=== PATIENT | male | born 1950 | race Caucasian/White ===

== ENCOUNTER → 2017-02-20 | Outpatient (CLI) | payer OTHER, MEDICARE ==
--- NOTE | 2017-02-21 08:09 | XR ---
EXAMINATION TYPE: XR cervical spine comp DATE OF EXAM: 02/20/2017 9:32 AM CLINICAL HISTORY: pain COMPARISON: NONE TECHNIQUE: Frontal, lateral, oblique, swimmers, and open mouth view of the cervical spine are obtaine d. FINDINGS: The cervical spine is visualized in its entirety from C1 thru the top of T1 level. It is s atisfactory in alignment without evidence of acute fracture or dislocation. The pre-vertebral soft t issue appears within normal limits. Disc spaces are well preserved. The C1-C2 articulation is unremar kable on the open mouth view. The oblique images are within normal limits. IMPRESSION: No acute fracture or dislocation is seen in the cervical spine. ICD 10 NO FRACTURE, INITIAL EVALUATION
== END | disposition home or self-care (01) ==
LOC: RADXRYALE 09:15
PROVIDERS: ATTEND Family Medicine
DX: M54.2 Cervicalgia (principal); M62.838 Other muscle spasm
CPT/HCPCS: 72050

== ENCOUNTER → 2018-08-03 | Outpatient (CLI) | payer OTHER, MEDICARE ==
--- NOTE | 2018-08-03 18:09 | CT ---
EXAMINATION TYPE: CT brain wo con DATE OF EXAM: 08/03/2018 COMPARISON: None HISTORY: dizziness and syncope CT DLP: 1114 mGycm Automated exposure control for dose reduction was used. FINDINGS: There is some cerebral cortical atrophy. There is no mass effect nor midline shift. There is no sign of intracranial hemorrhage. The calvarium is intact. IMPRESSION: MILD ATROPHY. OTHERWISE NEGATIVE CT SCAN OF THE BRAIN.
== END | disposition home or self-care (01) ==
LOC: RADCTMAIN 17:30
PROVIDERS: ATTEND Family Medicine
DX: G31.9 Degenerative disease of nervous system, unspecified (principal)
CPT/HCPCS: 70450

== ENCOUNTER 2018-10-28 16:31 | Emergency (ER) | payer OTHER, MEDICARE ==
[2018-10-28] MEDS ORDERED: SODIUM CHLORIDE 0.9% 1,000 ML IV STA (16:41)
[2018-10-28 16:46] VITALS: TEMP 98.8
--- NOTE | 2018-10-28 16:48 | ED ---
SOB HPI - General Stated Complaint: SOB Time Seen by Provider: 10/28/18 16:31 Source: patient, EMS, RN notes reviewed Mode of arrival: EMS Limitations: no limitations - History of Present Illness Initial Comments: Is a 68-year-old male with a history of a recent prostate biopsy who states he' s had shortness of breath and sharp right-sided posterior chest pain today. He states is a has been severe but he believes is feeling better he denies any fevers or sweats he has had some chills no cough or phlegm production he is a nonsmoker. No history of COPD asthma or emphysema. No trauma is reported. No overt abdominal pain. He states he does not know if he is having hematuria as he did see that far down. No focal weakness was upper or lower extremities no prior histories of pulmonary embolism or DVT. No other modifying factors at this time MD Complaint: shortness of breath, chest pain - Related Data Home Medications Medication Instructions Recorded Confirmed Aspirin [[place] Aspirin EC] 81 mg PO DAILY 10/28/18 10/28/18 Famotidine [Pepcid] 20 mg PO BID 10/28/18 10/28/18 Ibuprofen [Advil] 400 mg PO Q8HR 10/28/18 10/28/18 Timolol 0.5% Ophth Soln [Timoptic 1 drop BOTH EYES BID 10/28/18 10/28/18 0.5% Ophth Soln] Previous Rx's Medication Instructions Recorded Ibuprofen 800 mg PO Q6HR PRN #20 tablet 10/28/18 Allergies Allergy/AdvReac Type Severity Reaction Status Date / Time Penicillins Allergy Nausea & Verified 10/28/18 17:17 Vomiting Review of Systems ROS Statement: Those systems with pertinent positive or pertinent negative responses have been documented in the HPI. ROS Other: All systems not noted in ROS Statement are negative. Past Medical History Past Medical History: Cancer History of Any Multi-Drug Resistant Organisms: None Reported Additional Past Surgical History / Comment(s): Prostate Biopsy Past Psychological History: No Psychological Hx Reported Smoking Status: Never smoker Past Alcohol Use History: None Reported Past Drug Use History: None Reported General Exam - General Exam Comments Initial Comments: This is a well-developed well-nourished awake alert oriented times 3 male Limitations: no limitations General appearance: alert, anxious Head exam: Present: atraumatic, normocephalic, normal inspection Eye exam: Present: normal appearance, PERRL, EOMI. Absent: scleral icterus, conjunctival injection, periorbital swelling ENT exam: Present: normal exam, mucous membranes moist Neck exam: Present: normal inspection. Absent: tenderness, meningismus, lymphadenopathy Respiratory exam: Present: decreased breath sounds. Absent: respiratory distress, wheezes, rales, rhonchi, stridor, chest wall tenderness Cardiovascular Exam: Present: regular rate, normal rhythm, normal heart sounds. Absent: systolic murmur, diastolic murmur, rubs, gallop, clicks GI/Abdominal exam: Present: soft, normal bowel sounds. Absent: distended, tenderness, guarding, rebound, rigid Extremities exam: Present: normal inspection, full ROM, normal capillary refill. Absent: tenderness, pedal edema, joint swelling, calf tenderness Back exam: Present: normal inspection Neurological exam: Present: alert, oriented X3, CN II-XII intact Psychiatric exam: Present: normal affect, normal mood Skin exam: Present: warm, dry, intact, normal color. Absent: rash Course Vital Signs 10/28/18 16:42 Temperature 98.8 F Pulse Rate 92 Respiratory 18 Rate Blood Pressure 168/96 O2 Sat by Pulse 99 Oximetry - Reevaluation(s) Reevaluation #1: 10/28/18 18:08 Today's EKG was compared with one from 200802/03/09 which at that time showed sinus rhythm left atrial enlargement nonspecific inferior changes this appears be consistent with today's EKG. Medical Decision Making - Medical Decision Making Patient showing much improved at this time I did a long discussion with him regarding the findings. I did offer him admission he is declining at this time. He will instead follow up with his doctor tomorrow morning. I did encourage him to come back if any problems. The presentation currently is likely secondary to pleuritic type chest pain and advised anti-inflammatories. History and 10 days since his biopsy that should be adequate postop timing. Is also to keep his follow-up with Dr. Sue - Lab Data Result diagrams: 10/28/18 16:53 10/28/18 16:53 Lab Results 10/28/18 10/28/18 10/28/18 Range/Units 16:53 16:53 16:53 WBC 10.9 H (3.8-10.6) k/uL RBC 5.86 (4.30-5.90) m/uL Hgb 15.7 (13.0-17.5) gm/dL Hct 50.1 (39.0-53.0) % MCV 85.5 (80.0-100.0) fL MCH 26.8 (25.0-35.0) pg MCHC 31.4 (31.0-37.0) g/dL RDW 13.2 (11.5-15.5) % Plt Count 289 (150-450) k/uL Neutrophils % 77 % Lymphocytes % 13 % Monocytes % 7 % Eosinophils % 2 % Basophils % 0 % Neutrophils # 8.3 H (1.3-7.7) k/uL Lymphocytes # 1.4 (1.0-4.8) k/uL Monocytes # 0.8 (0-1.0) k/uL Eosinophils # 0.2 (0-0.7) k/uL Basophils # 0.0 (0-0.2) k/uL PT (9.0-12.0) sec INR (<1.2) APTT (22.0-30.0) sec D-Dimer (<0.60) mg/L FEU Sodium 141 (137-145) mmol/L Potassium 4.1 (3.5-5.1) mmol/L Chloride 106 (98-107) mmol/L Carbon Dioxide 24 (22-30) mmol/L Anion Gap 11 mmol/L BUN 22 H (9-20) mg/dL Creatinine 0.87 (0.66-1.25) mg/dL Est GFR (CKD-EPI)AfAm >90 (>60 ml/min/1.73 sqM) Est GFR (CKD-EPI)NonAf 88 (>60 ml/min/1.73 sqM) Glucose 112 H (74-99) mg/dL Calcium 9.4 (8.4-10.2) mg/dL Magnesium 2.1 (1.6-2.3) mg/dL Total Bilirubin 0.5 (0.2-1.3) mg/dL AST 21 (17-59) U/L ALT 26 (21-72) U/L Alkaline Phosphatase 96 (38-126) U/L Total Creatine Kinase 47 L (55-170) U/L CK-MB (CK-2) 1.0 (0.0-2.4) ng/mL CK-MB (CK-2) Rel Index 2.1 Troponin I <0.012 (0.000-0.034) ng/mL NT-Pro-B Natriuret Pep pg/mL Total Protein 7.7 (6.3-8.2) g/dL Albumin 4.1 (3.5-5.0) g/dL 10/28/18 10/28/18 Range/Units 16:53 16:53 WBC (3.8-10.6) k/uL RBC (4.30-5.90) m/uL Hgb (13.0-17.5) gm/dL Hct (39.0-53.0) % MCV (80.0-100.0) fL MCH (25.0-35.0) pg MCHC (31.0-37.0) g/dL RDW (11.5-15.5) % Plt Count (150-450) k/uL Neutrophils % % Lymphocytes % % Monocytes % % Eosinophils % % Basophils % % Neutrophils # (1.3-7.7) k/uL Lymphocytes # (1.0-4.8) k/uL Monocytes # (0-1.0) k/uL Eosinophils # (0-0.7) k/uL Basophils # (0-0.2) k/uL PT 10.2 (9.0-12.0) sec INR 0.9 (<1.2) APTT 26.5 (22.0-30.0) sec D-Dimer 0.73 H (<0.60) mg/L FEU Sodium (137-145) mmol/L Potassium (3.5-5.1) mmol/L Chloride (98-107) mmol/L Carbon Dioxide (22-30) mmol/L Anion Gap mmol/L BUN (9-20) mg/dL Creatinine (0.66-1.25) mg/dL Est GFR (CKD-EPI)AfAm (>60 ml/min/1.73 sqM) Est GFR (CKD-EPI)NonAf (>60 ml/min/1.73 sqM) Glucose (74-99) mg/dL Calcium (8.4-10.2) mg/dL Magnesium (1.6-2.3) mg/dL Total Bilirubin (0.2-1.3) mg/dL AST (17-59) U/L ALT (21-72) U/L Alkaline Phosphatase (38-126) U/L Total Creatine Kinase (55-170) U/L CK-MB (CK-2) (0.0-2.4) ng/mL CK-MB (CK-2) Rel Index Troponin I (0.000-0.034) ng/mL NT-Pro-B Natriuret Pep 31 pg/mL Total Protein (6.3-8.2) g/dL Albumin (3.5-5.0) g/dL - EKG Data -: EKG Interpreted by Me EKG shows normal: sinus rhythm (Sinus rhythm rate 92. Interval 160 QRS duration 94 QT since QTC 336/413 nonspecific inferior changes noted. No acute ST elevation or depression seen) - Radiology Data Radiology results: report reviewed (Did review the imaging and reports are is no evidence of acute abdominal findings also scars the lungs no PE no evidence of pneumonic process or some evidence of atelectasis seen a CAT scan no overt infiltrates. There was a small nodule 1.4 x 0.9 cm seen in the right paraesophageal reason he is aware of this.), image reviewed Disposition Clinical Impression: Pleuritic chest pain, Bronchospasm, History of prostate biopsy, Pulmonary nodule Disposition: HOME SELF-CARE Condition: Good Instructions: Bronchospasm (ED), Pleurisy (ED) Prescriptions: Ibuprofen 800 mg PO Q6HR PRN #20 tablet PRN Reason: Pain Is patient prescribed a controlled substance at d/c from ED?: No Referrals: [facility] [Primary Care Provider] - 1-2 days
[2018-10-28 17:15] LABS: Basophils % (A) 0 %; Eosinophils # (A) 0.2 k/uL (0-0.7); Eosinophils % (A) 2 %; HCT 50.1 % (39.0-53.0); HGB 15.7 gm/dL (13.0-17.5); Lymphocytes # (A) 1.4 k/uL (1.0-4.8); Lymphocytes % (A) 13 %; MCH 26.8 pg (25.0-35.0); MCHC 31.4 g/dL (31.0-37.0); MCV 85.5 fL (80.0-100.0); Mean Platelet Volume 6.7; Monocytes # (A) 0.8 k/uL (0-1.0); Monocytes % (A) 7 %; Neutrophils # (A) 8.3 k/uL (1.3-7.7); Neutrophils % (A) 77 %; Platelet Count 289 k/uL (150-450); RBC 5.86 m/uL (4.30-5.90); RDW 13.2 % (11.5-15.5); WBC 10.9 k/uL (3.8-10.6)
[2018-10-28 17:18] LABS: ALT 26 U/L (21-72); AST 21 U/L (17-59); Albumin 4.1 g/dL (3.5-5.0); Alkaline Phosphatase 96 U/L (38-126); Anion Gap 11 mmol/L; Blood Urea Nitrogen 22 mg/dL (9-20); Calcium 9.4 mg/dL (8.4-10.2); Carbon Dioxide 24 mmol/L (22-30); Chloride 106 mmol/L (98-107); Glucose 112 mg/dL (74-99); Magnesium 2.1 mg/dL (1.6-2.3); Potassium 4.1 mmol/L (3.5-5.1); Sodium 141 mmol/L (137-145); Total Bilirubin 0.5 mg/dL (0.2-1.3); Total Protein 7.7 g/dL (6.3-8.2)
[2018-10-28 17:23] LABS: INR 0.9 (<1.2); Partial Thromboplastin Time 26.5 sec (22.0-30.0); Prothrombin Time 10.2 sec (9.0-12.0)
[2018-10-28 17:34] LABS: D-Dimer 0.73 mg/L FEU (<0.60)
[2018-10-28 17:36] LABS: Creatine Kinase 47 U/L (55-170)
--- NOTE | 2018-10-28 17:37 | XR ---
EXAMINATION TYPE: XR chest 2V DATE OF EXAM: 10/28/2018 COMPARISON: NONE HISTORY: Right-sided chest pain and shortness of breath today. TECHNIQUE: Frontal and lateral views of the chest are obtained. FINDINGS: Cardiac silhouette size is enlarged. There are small to tiny bilateral pleural effusions f elt present. There is associated bibasilar atelectasis and/or infiltrate. The osseous structures are intact. IMPRESSION: Cardiomegaly with small to tiny bilateral pleural effusions and bibasilar acute infiltra te and/or atelectasis noted.
[2018-10-28 17:49] LABS: Troponin I <0.012 ng/mL (0.000-0.034)
--- NOTE | 2018-10-28 19:27 | CT ---
EXAMINATION TYPE: CT abdomen pelvis wo con DATE OF EXAM: 10/28/2018 HISTORY: SOB, pain in LT side back. Left-sided flank and back pain CT DLP: 695.6 mGycm. Automated Exposure Control for Dose Reduction was Utilized. TECHNIQUE: CT scan of the abdomen and pelvis is performed without oral or IV contrast. COMPARISON: NONE FINDINGS: Within the limitations of a non-contrast study, the following observations are made. LUNG BASES: Please refer to same day CTA chest report complete details on lung bases. LIVER/GB: Dependent calcified gallstone is seen in gallbladder axial image 59. No surrounding inflamm atory changes noted. Liver is diffusely low dense relative to spleen consistent with fatty infiltrati on. PANCREAS: No significant abnormality is seen. SPLEEN: No significant abnormality is seen. ADRENALS: No significant abnormality is seen. KIDNEYS: No renal calculi or hydronephrosis is seen bilaterally. Simple appearing cyst measuring arou nd 4 cm in diameter upper the lower pole of the right kidney are seen. No intraluminal calculi and bl adder are noted. BOWEL: Evaluation of bowel is slightly suboptimal film due to lack of enteric contrast. No suspicious small or large bowel dilatation is seen.. GENITAL ORGANS: Prostate gland is enlarged in size bulging on bladder base, underlying BPH is felt pr esent LYMPH NODES: No greater than 1cm abdominal or pelvic lymph nodes are appreciated. OSSEOUS STRUCTURES: Multilevel spurring in the thoracolumbar spine is present. Moderate disc space na rrowing with vacuum disc phenomenon L4-L5 level is seen. OTHER: Mild calcified plaque of the aorta extends into branch vessels. IMPRESSION: No renal stones or hydronephrosis is seen bilaterally. No suspicious acute finding is see n on noncontrast CT to account for patient's symptoms.
--- NOTE | 2018-10-28 19:36 | CT ---
EXAMINATION TYPE: CT angio chest DATE OF EXAM: 10/28/2018 COMPARISON: NONE HISTORY: SOB, pain in LT side back. CT DLP: 445.8 mGycm. Automated Exposure Control for Dose Reduction was Utilized. CONTRAST: CTA scan of the thorax is performed with IV Contrast, patient injected with 100 mL of Isovue 370, pul monary embolism protocol. MIP Images are created on CT scanner and reviewed. FINDINGS: LUNGS: Some dependent atelectasis right lung base is present. There is additional patchy bibasilar li near scarring and/or atelectasis in the bases near diaphragm. No pleural effusion or pneumothorax is seen bilaterally. No suspicious nodules or masses are identified. Tracheobronchial tree is patent. MEDIASTINUM: There is satisfactory enhancement of the pulmonary artery and its branches, there is no CT evidence for pulmonary embolism. There are no greater than 1 cm hilar or mediastinal lymph nodes. There is prominent right paraesophageal hyperdense axial image 18 mass or lymph node measuring 1.4 x 0.9 cm. There are prominent but subcentimeter lymph nodes bilateral hilar region, subcarinal region , and AP window noted. No cardiomegaly or pericardial effusion is seen. Small hiatal hernia is presen t. OTHER: Please refer to same day CT abdomen and pelvis report for complete details in the upper abdome n. IMPRESSION: 1. No CT evidence for acute pulmonary embolism. 2. No suspicious acute pulmonary process. 3. Abnormal superior mediastinal hyperdense 1.4 x 0.9 cm mass right paraesophageal region that may wa rrant follow-up. Ectopic thyroid and hyperdense adenopathy is in differential. Other etiologies not e xcluded.
[2018-10-28 20:24] VITALS: BP 150/82; PULSE 85; RESP 23
== END 2018-10-28 20:24 | disposition home or self-care (01) ==
LOC: EC 16:31
DX: J98.01 Acute bronchospasm (principal); R91.1 Solitary pulmonary nodule; Z98.890 Other specified postprocedural states; Z85.9 Personal history of malignant neoplasm, unspecified; Z79.82 Long term (current) use of aspirin; Z79.1 Long term (current) use of non-steroidal anti-inflammatories (NSAID); Z79.899 Other long term (current) drug therapy; Z88.0 Allergy status to penicillin; Z53.29 Procedure and treatment not carried out because of patient's decision for other reasons
CPT/HCPCS: 36415; 93005; 85379; 83880; 80053; 82550; 82553; 83735; 84484; 85025; 85610; 85730; 71046; 71275; 74176; 99285; 96360; 96361; Q9967

== ENCOUNTER → 2022-01-13 | Outpatient (CLI) | payer OTHER, MEDICARE ==
--- NOTE | 2022-01-13 14:45 | XR ---
EXAMINATION TYPE: XR chest 2V DATE OF EXAM: 01/13/2022 COMPARISON: X-ray dated 10/28/2018 HISTORY: SOB with cough for several weeks TECHNIQUE: Frontal and lateral views of the chest are obtained. FINDINGS: Left basal pulmonary atelectasis versus prominent epicardial fat-pad. Grossly unremarkable lungs othe rwise. No sizable pleural effusion or definite pneumothorax. No cardiomegaly. Degenerative changes of the thoracic spine. IMPRESSION: No significant pulmonary abnormality identified.
== END | disposition home or self-care (01) ==
LOC: RADXRYALE 11:22
PROVIDERS: ATTEND Physician Assistant
DX: R06.02 Shortness of breath (principal); R05.9 Cough, unspecified
CPT/HCPCS: 71046

== ENCOUNTER 2022-01-25 10:58 | Emergency (ER) | payer OTHER, MEDICARE ==
[2022-01-25 11:18] VITALS: RESP 18
[2022-01-25] MEDS ORDERED: ASPIRIN 81 MG PO STA (11:51)
[2022-01-25 12:00] LABS: Basophils # (A) 0.1 k/uL (0-0.2); Basophils % (A) 1 %; Eosinophils # (A) 0.2 k/uL (0-0.7); Eosinophils % (A) 1 %; HCT 49.8 % (39.0-53.0); HGB 16.7 gm/dL (13.0-17.5); Lymphocytes # (A) 1.7 k/uL (1.0-4.8); Lymphocytes % (A) 15 %; MCH 29.2 pg (25.0-35.0); MCHC 33.6 g/dL (31.0-37.0); MCV 86.9 fL (80.0-100.0); Mean Platelet Volume 7.7; Monocytes # (A) 0.7 k/uL (0-1.0); Monocytes % (A) 7 %; Neutrophils # (A) 8.4 k/uL (1.3-7.7); Neutrophils % (A) 75 %; Platelet Count 280 k/uL (150-450); RBC 5.73 m/uL (4.30-5.90); RDW 13.1 % (11.5-15.5); WBC 11.2 k/uL (3.8-10.6)
--- NOTE | 2022-01-25 12:22 | ED ---
General Adult HPI - General Chief complaint: Recheck/Abnormal Lab/Rx Stated complaint: sent for labs Time Seen by Provider: 01/25/22 11:22 Source: patient, RN notes reviewed, old records reviewed Mode of arrival: ambulatory Limitations: no limitations - History of Present Illness Initial comments: Patient is a 71-year-old male with past medical history remarkable for suspected recent subacute SD over the last 2 weeks he was sent here from Dr. Em's office for cardiac labs. I did speak with Dr. Em over the phone, the patient has been having on again off again chest pain at home, which is most resolved the last few days after experiencing chest pain over the left side for about a week and a half prior to seeing his PCP. EKG showed a possible old inferior wall SD, an echo done at the [facility] today revealed decreased right ventricular motion. Dr. Em requested cardiac labs as well as a d-dimer. He states his labs look good, patient can go home, however there is some abnormality or patient is symptomatic we can admit for evaluation and telemetry monitoring. Patient currently states he has no acute complaints. Denies any shortness of breath, chest pain, abdominal pain, nausea, vomiting. States that after a few days ago when his chest pain resolved, he just intermittently will receive very brief left-sided discomfort. Has not had it recently. Does endorse exertional dyspnea. Denies any lower extremity edema. No history of blood clots. No other cardiac history. Patient does have a history of hypertension, however up until recently was not overly compliant with his medications. He is a never smoker and does not drink. No other acute complaints at this time. No fevers, chills, sick contacts. - Related Data Home Medications Medication Instructions Recorded Confirmed Timolol 0.5% Ophth Soln [Timoptic 1 drop BOTH EYES BID 10/28/18 01/25/22 0.5% Ophth Soln] Latanoprost Ophth [Xalatan 0.005%] 1 drops RIGHT EYE HS 01/25/22 01/25/22 Losartan [Cozaar] 50 mg PO DAILY 01/25/22 01/25/22 Allergies Allergy/AdvReac Type Severity Reaction Status Date / Time Penicillins Allergy Unknown Verified 01/25/22 12:28 Childhood Review of Systems ROS Statement: Those systems with pertinent positive or pertinent negative responses have been documented in the HPI. Review of Systems: CONST: Denies fever EYES: Denies blurry vision ENT: Denies nasal congestion C/V: Denies chest pain RESP: Denies shortness of breath GI: Denies abdominal pain : Denies dysuria SKIN: Denies rash. MSK: Denies joint pain. NEURO: Denies headache ROS Other: All systems not noted in ROS Statement are negative. Past Medical History Past Medical History: Cancer, Myocardial Infarction (SD) History of Any Multi-Drug Resistant Organisms: None Reported Additional Past Surgical History / Comment(s): Prostate Biopsy Past Psychological History: No Psychological Hx Reported Smoking Status: Never smoker Past Alcohol Use History: None Reported Past Drug Use History: None Reported General Exam - General Exam Comments Initial Comments: General: Appears in no acute distress. HEAD: Normal with no signs of head trauma. EYES: PERRLA, EOMI, conjunctiva normal, no discharge. ENT: Hearing grossly intact, normal oropharynx. RESPIRATORY: Clear breath sounds bilaterally. No wheezes, rales, or rhonchi. C/V: Regular rate and rhythm. S1 and S2 auscultated, no edema, peripheral pulses 2+ and intact throughout ABD: Abd is soft, nontender, nondistended EXT: Normal range of motion, no obvious deformity SKIN: No rashes or lesions observed on exposed skin. NEURO: Alert and oriented x 4. Cranial nerves II-XII intact. No focal sensory or strength deficits. Limitations: no limitations Course Vital Signs 01/25/22 11:15 Temperature 97.9 F Pulse Rate 65 Respiratory 18 Rate Blood Pressure 148/77 O2 Sat by Pulse 97 Oximetry Medical Decision Making - Medical Decision Making Based on the patient's presentation and physical exam, we will obtain a cardiac workup plus d-dimer. Patient was in agreement this plan. He will be given an aspirin. Also obtain a chest x-ray. He is currently asymptomatic at this time. Patient was in agreement this plan. EKG showed no signs of acute ischemia, however there were Q waves in the inferior leads distribution suggestive of possible old SD. - Lab Data Result diagrams: 01/25/22 11:37 01/25/22 12:55 Lab Results 01/25/22 01/25/22 01/25/22 Range/Units 11:37 11:37 12:55 WBC 11.2 H (3.8-10.6) k/uL RBC 5.73 (4.30-5.90) m/uL Hgb 16.7 (13.0-17.5) gm/dL Hct 49.8 (39.0-53.0) % MCV 86.9 (80.0-100.0) fL MCH 29.2 (25.0-35.0) pg MCHC 33.6 (31.0-37.0) g/dL RDW 13.1 (11.5-15.5) % Plt Count 280 (150-450) k/uL MPV 7.7 Neutrophils % 75 % Lymphocytes % 15 % Monocytes % 7 % Eosinophils % 1 % Basophils % 1 % Neutrophils # 8.4 H (1.3-7.7) k/uL Lymphocytes # 1.7 (1.0-4.8) k/uL Monocytes # 0.7 (0-1.0) k/uL Eosinophils # 0.2 (0-0.7) k/uL Basophils # 0.1 (0-0.2) k/uL PT 10.8 (9.0-12.0) sec INR 1.0 (<1.2) APTT 24.9 (22.0-30.0) sec D-Dimer 0.59 (<0.60) mg/L FEU Sodium (137-145) mmol/L Potassium (3.5-5.1) mmol/L Chloride (98-107) mmol/L Carbon Dioxide (22-30) mmol/L Anion Gap mmol/L BUN (9-20) mg/dL Creatinine (0.66-1.25) mg/dL Est GFR (CKD-EPI)AfAm (>60 ml/min/1.73 sqM) Est GFR (CKD-EPI)NonAf (>60 ml/min/1.73 sqM) Glucose (74-99) mg/dL Calcium (8.4-10.2) mg/dL Magnesium (1.6-2.3) mg/dL Total Bilirubin (0.2-1.3) mg/dL AST (17-59) U/L ALT (4-49) U/L Alkaline Phosphatase (38-126) U/L Troponin I (0.000-0.034) ng/mL NT-Pro-B Natriuret Pep 25 pg/mL Total Protein (6.3-8.2) g/dL Albumin (3.5-5.0) g/dL 01/25/22 01/25/22 Range/Units 12:55 12:55 WBC (3.8-10.6) k/uL RBC (4.30-5.90) m/uL Hgb (13.0-17.5) gm/dL Hct (39.0-53.0) % MCV (80.0-100.0) fL MCH (25.0-35.0) pg MCHC (31.0-37.0) g/dL RDW (11.5-15.5) % Plt Count (150-450) k/uL MPV Neutrophils % % Lymphocytes % % Monocytes % % Eosinophils % % Basophils % % Neutrophils # (1.3-7.7) k/uL Lymphocytes # (1.0-4.8) k/uL Monocytes # (0-1.0) k/uL Eosinophils # (0-0.7) k/uL Basophils # (0-0.2) k/uL PT (9.0-12.0) sec INR (<1.2) APTT (22.0-30.0) sec D-Dimer (<0.60) mg/L FEU Sodium 140 (137-145) mmol/L Potassium 4.3 (3.5-5.1) mmol/L Chloride 108 H (98-107) mmol/L Carbon Dioxide 23 (22-30) mmol/L Anion Gap 9 mmol/L BUN 21 H (9-20) mg/dL Creatinine 0.68 (0.66-1.25) mg/dL Est GFR (CKD-EPI)AfAm >90 (>60 ml/min/1.73 sqM) Est GFR (CKD-EPI)NonAf >90 (>60 ml/min/1.73 sqM) Glucose 103 H (74-99) mg/dL Calcium 9.2 (8.4-10.2) mg/dL Magnesium 2.0 (1.6-2.3) mg/dL Total Bilirubin 0.6 (0.2-1.3) mg/dL AST 28 (17-59) U/L ALT 37 (4-49) U/L Alkaline Phosphatase 82 (38-126) U/L Troponin I <0.012 (0.000-0.034) ng/mL NT-Pro-B Natriuret Pep pg/mL Total Protein 7.3 (6.3-8.2) g/dL Albumin 3.9 (3.5-5.0) g/dL - EKG Data -: EKG Interpreted by Me EKG Comments: 12-lead Electrocardiogram Interpretation Note EKG was reviewed and interpreted by myself. 12-lead ECG performed at 1126 is interpreted by me as revealing normal sinus rhythm at a rate of 67 beats per minute. [place] is normal. [place] interval is 167 ms, QRS duration is 102 ms, QTc is 379 ms.. There are Q waves present in leads 2, 3, aVF. There were no ST or T wave abnormalities to suggest myocardial ischemia or injury. R wave progression across the precordium was satisfactory. By my interpretation this EKG is non- diagnostic for acute ischemia. Shows possible old inferior wall SD based on the Q waves. Disposition Clinical Impression: Encounter for blood test Disposition: HOME SELF-CARE Condition: Good Is patient prescribed a controlled substance at d/c from ED?: No Referrals: Jorge A Prakash DO [Primary Care Provider] - 1-2 days Manny Em MD [STAFF PHYSICIAN] - 1-2 days
--- NOTE | 2022-01-25 12:33 | XR ---
EXAMINATION TYPE: XR chest 2V DATE OF EXAM: 01/25/2022 COMPARISON: Chest x-ray January 13, 2022 HISTORY: Shortness of breath. TECHNIQUE: Frontal and lateral views of the chest are obtained. FINDINGS: Overlying EKG leads. There is chronic parenchymal changes bilaterally without suspicious f ocal air space opacity, pleural effusion, or pneumothorax seen. The cardiac silhouette size is stabl e and upper limits of normal. Multilevel spurs in the thoracic spine redemonstrated. IMPRESSION: Chronic changes without acute pulmonary process.
[2022-01-25 13:20] LABS: ALT 37 U/L (4-49); AST 28 U/L (17-59); African American GFR (CKD) >90 (>60 ml/min/1.73 sqM); Albumin 3.9 g/dL (3.5-5.0); Alkaline Phosphatase 82 U/L (38-126); Anion Gap 9 mmol/L; Blood Urea Nitrogen 21 mg/dL (9-20); Calcium 9.2 mg/dL (8.4-10.2); Carbon Dioxide 23 mmol/L (22-30); Chloride 108 mmol/L (98-107); Glucose 103 mg/dL (74-99); Non-African American GFR(CKD) >90 (>60 ml/min/1.73 sqM); Potassium 4.3 mmol/L (3.5-5.1); Sodium 140 mmol/L (137-145); Total Bilirubin 0.6 mg/dL (0.2-1.3); Total Protein 7.3 g/dL (6.3-8.2)
[2022-01-25 13:22] LABS: Partial Thromboplastin Time 24.9 sec (22.0-30.0); Prothrombin Time 10.8 sec (9.0-12.0)
[2022-01-25 14:00] VITALS: BP 130/81; PULSE 63; TEMP 98
--- NOTE | 2022-01-25 14:01 | ED ---
Medical Decision Making - Medical Decision Making Chest x-ray revealed chronic changes without acute pulmonary process. Cardiac workup was negative, including a undetectable troponin, d-dimer within normal limits, as well as a normal BNP. Remainder of the labs are unremarkable. I spoke with the patient regarding his negative workup. I do believe it is safer to be discharged home as he remains asymptomatic throughout his stay here. He was in agreement this plan. I did call Dr. Em prior to the patient's discharge, he wants the patient to return to the cardiology office for possible arrangement for stress test. I conveyed this to the patient, and he will go straight from the emergency department over to the cardiology offices. I recommended the patient continue his daily baby aspirin dosing. I instructed the patient to follow up with their PCP in the next 3 days. I provided contact information for follow up with Dr. Em. I explained that the patient should return to the emergency department if they experience any worsening symptoms. Strict return precautions were discussed with the patient. The patient expressed understanding of these instructions. I answered all questions that the patient had. The patient was discharged home in good condition with their prescriptions and follow up information. - Lab Data Result diagrams: 01/25/22 11:37 01/25/22 12:55 Lab Results 01/25/22 01/25/22 01/25/22 Range/Units 11:37 11:37 12:55 WBC 11.2 H (3.8-10.6) k/uL RBC 5.73 (4.30-5.90) m/uL Hgb 16.7 (13.0-17.5) gm/dL Hct 49.8 (39.0-53.0) % MCV 86.9 (80.0-100.0) fL MCH 29.2 (25.0-35.0) pg MCHC 33.6 (31.0-37.0) g/dL RDW 13.1 (11.5-15.5) % Plt Count 280 (150-450) k/uL MPV 7.7 Neutrophils % 75 % Lymphocytes % 15 % Monocytes % 7 % Eosinophils % 1 % Basophils % 1 % Neutrophils # 8.4 H (1.3-7.7) k/uL Lymphocytes # 1.7 (1.0-4.8) k/uL Monocytes # 0.7 (0-1.0) k/uL Eosinophils # 0.2 (0-0.7) k/uL Basophils # 0.1 (0-0.2) k/uL PT 10.8 (9.0-12.0) sec INR 1.0 (<1.2) APTT 24.9 (22.0-30.0) sec D-Dimer 0.59 (<0.60) mg/L FEU Sodium (137-145) mmol/L Potassium (3.5-5.1) mmol/L Chloride (98-107) mmol/L Carbon Dioxide (22-30) mmol/L Anion Gap mmol/L BUN (9-20) mg/dL Creatinine (0.66-1.25) mg/dL Est GFR (CKD-EPI)AfAm (>60 ml/min/1.73 sqM) Est GFR (CKD-EPI)NonAf (>60 ml/min/1.73 sqM) Glucose (74-99) mg/dL Calcium (8.4-10.2) mg/dL Magnesium (1.6-2.3) mg/dL Total Bilirubin (0.2-1.3) mg/dL AST (17-59) U/L ALT (4-49) U/L Alkaline Phosphatase (38-126) U/L Troponin I (0.000-0.034) ng/mL NT-Pro-B Natriuret Pep 25 pg/mL Total Protein (6.3-8.2) g/dL Albumin (3.5-5.0) g/dL 01/25/22 01/25/22 Range/Units 12:55 12:55 WBC (3.8-10.6) k/uL RBC (4.30-5.90) m/uL Hgb (13.0-17.5) gm/dL Hct (39.0-53.0) % MCV (80.0-100.0) fL MCH (25.0-35.0) pg MCHC (31.0-37.0) g/dL RDW (11.5-15.5) % Plt Count (150-450) k/uL MPV Neutrophils % % Lymphocytes % % Monocytes % % Eosinophils % % Basophils % % Neutrophils # (1.3-7.7) k/uL Lymphocytes # (1.0-4.8) k/uL Monocytes # (0-1.0) k/uL Eosinophils # (0-0.7) k/uL Basophils # (0-0.2) k/uL PT (9.0-12.0) sec INR (<1.2) APTT (22.0-30.0) sec D-Dimer (<0.60) mg/L FEU Sodium 140 (137-145) mmol/L Potassium 4.3 (3.5-5.1) mmol/L Chloride 108 H (98-107) mmol/L Carbon Dioxide 23 (22-30) mmol/L Anion Gap 9 mmol/L BUN 21 H (9-20) mg/dL Creatinine 0.68 (0.66-1.25) mg/dL Est GFR (CKD-EPI)AfAm >90 (>60 ml/min/1.73 sqM) Est GFR (CKD-EPI)NonAf >90 (>60 ml/min/1.73 sqM) Glucose 103 H (74-99) mg/dL Calcium 9.2 (8.4-10.2) mg/dL Magnesium 2.0 (1.6-2.3) mg/dL Total Bilirubin 0.6 (0.2-1.3) mg/dL AST 28 (17-59) U/L ALT 37 (4-49) U/L Alkaline Phosphatase 82 (38-126) U/L Troponin I <0.012 (0.000-0.034) ng/mL NT-Pro-B Natriuret Pep pg/mL Total Protein 7.3 (6.3-8.2) g/dL Albumin 3.9 (3.5-5.0) g/dL Disposition Clinical Impression: Encounter for blood test Disposition: HOME SELF-CARE Condition: Good Additional Instructions: follow up with Dr. Em at the cardiology offices immediately upon discharge from the emergency department. They are expecting you. Is patient prescribed a controlled substance at d/c from ED?: No Referrals: Jorge A Prakash DO [Primary Care Provider] - 1-2 days Manny Em MD [STAFF PHYSICIAN] - 1-2 days
== END 2022-01-25 13:57 | disposition home or self-care (01) ==
LOC: EC 10:58
DX: Z02.83 Encounter for blood-alcohol and blood-drug test (principal); I25.2 Old myocardial infarction; Z88.0 Allergy status to penicillin
CPT/HCPCS: 36415; 71046; 80053; 83735; 83880; 84484; 85025; 85379; 85610; 85730; 93005; 99285

== ENCOUNTER 2022-02-03 07:49 | Day surgery (SDC) | payer OTHER, MEDICARE ==
[~2022-02-03 07:49] MED LIST: ALPRAZolam 0.25 MG TAB PO PRN; ALPRAZolam 0.5 MG TAB PO PRN; ASPIRIN 325 MG TAB PO STA; ATORVASTATIN 80 MG TAB PO STA; NITROGLYCERIN SL TABS 0.4 MG TAB SUBLINGUAL PRN; SODIUM CHLORIDE 0.9% 1,000 ML in EMPTY BAG 1 BAG IV SCH
[2022-02-03] MEDS ORDERED: ASPIRIN 81 MG ONE (08:13)
[2022-02-03 08:19] VITALS: TEMP 97.7
[2022-02-03] MEDS ORDERED: LIDOCAINE 1% INJ 10MG/ML (20 ML MDV) ONE (10:15)
[2022-02-03] MEDS ORDERED: VERAPAMIL 2.5 MG/ML 2 ML AMP ONE (10:15)
[2022-02-03] MEDS ORDERED: HEPARIN SODIUM 1,000 UN/ML (10ML VL) ONE (10:15)
[2022-02-03] MEDS ORDERED: fentaNYL (PF) 50 MCG/ML 2 ML AMP ONE (10:49)
[2022-02-03] MEDS ORDERED: MIDAZOLAM 2 MG/2 ML VIAL IV ONE (11:00)
[2022-02-03] MEDS ORDERED: fentaNYL (PF) 50 MCG/ML 2 ML AMP IV ONE (11:00)
[2022-02-03] MEDS ORDERED: LIDOCAINE 1% INJ 10MG/ML (20 ML MDV) SQ ONE (11:01)
[2022-02-03] MEDS ORDERED: HEPARIN SODIUM 1,000 UN/ML (10ML VL) IV ONE (11:06)
[2022-02-03] MEDS ORDERED: IOPAMIDOL-370 125ML BTL INJ ONE (11:15)
--- NOTE | 2022-02-03 14:57 | CC ---
CARDIAC CATHETERIZATION REPORT CARDIAC CATHETERIZATION NOTE: INDICATION: Unstable angina. PROCEDURE NOTE: After obtaining informed consent, left heart catheterization and coronary angiogram are performed via the right radial artery using size 3.5 Ford catheters to engage the right and left coronary arteries and a pigtail catheter to obtain hemodynamics. Patient tolerated the procedure well without any obvious complications. Patient received moderate conscious sedation. Total sedation time was 16 minutes. Using a micropuncture needle, we obtained right radial artery access, and under fluoroscopic guidance catheters and wires were floated into the ascending aorta and catheters were exchanged there. FINDINGS: HEMODYNAMICS: Left ventricular end-diastolic pressure is 2 to 4 mm. There is no significant gradient across the aortic valve. LEFT VENTRICULOGRAM: Left ventriculogram was not performed. ANGIOGRAPHIC DATA: Left main coronary artery. Left main coronary artery is a short vessel and is free of stenosis. It divides into left anterior descending coronary artery and circumflex coronary artery. LAD and its branches, circumflex coronary artery and its branches are free of significant stenosis. Right coronary artery is a large dominant vessel and is free of significant disease. CONCLUSIONS: 1. Normal coronary arteries. 2. Normal LV function by non-invasive testing. PLAN: I reviewed angiographic data with the patient and told him that his symptoms are non- cardiac in origin. MMODL / IJN: [id number] /
--- NOTE | 2022-02-03 15:01 | LTR ---
February 03, 2022 To: Dr. Jorge A Prakash Re: Larry Joshua Dear Jorge A, I performed cardiac catheterization on Larry Joshua to evaluate symptoms of unstable angina. A detailed catheterization report is enclosed for your records. I am happy to report to you that the coronary angiogram showed normal coronary arteries. Patient's symptoms are probably non-cardiac in origin. Thank you for giving me the privilege of participating in the care of this pleasant gentleman. Sincerely, Manny Em M.D. [facility]: [id number] /
[2022-02-03 15:09] VITALS: BP 114/61; PULSE 72; RESP 16
== END 2022-02-03 15:34 | disposition home or self-care (01) ==
LOC: CATHCVL 07:49
PROVIDERS: ATTEND Internal Medicine Cardiovascular Disease
DX: I20.0 Unstable angina (principal); I10 Essential (primary) hypertension; N40.0 Benign prostatic hyperplasia without lower urinary tract symptoms; F41.9 Anxiety disorder, unspecified; K21.9 Gastro-esophageal reflux disease without esophagitis; C61 Malignant neoplasm of prostate; Z79.899 Other long term (current) drug therapy; Z88.0 Allergy status to penicillin
CPT/HCPCS: 93458; C1894; J2250; J2001; J3010; J1644; Q9967

== ENCOUNTER → 2022-02-25 | Outpatient (CLI) | payer OTHER, MEDICARE ==
[2022-02-25 12:04] LABS: African American GFR (CKD) >90 (>60 ml/min/1.73 sqM); Blood Urea Nitrogen 21 mg/dL (9-20); Non-African American GFR(CKD) 90 (>60 ml/min/1.73 sqM)
--- NOTE | 2022-02-25 13:12 | CT ---
EXAMINATION TYPE: CT chest w con DATE OF EXAM: 02/25/2022 COMPARISON: 10/28/2018 HISTORY: Abnormal chest x-ray. CT DLP: 669 mGycm Automated exposure control for dose reduction was used. TECHNIQUE: CT scan of the chest is performed with IV Contrast, patient injected with 100ml mL of Isovue 300. CT P Images are created on CT scanner and reviewed. 3D reconstructed images are created on an [employer] workstation and reviewed. FINDINGS: LUNGS: The lungs are grossly clear, there is no concerning parenchymal mass or nodule identified. Th ere is a stable groundglass density associated with the minor fissure and there is mild pleural-paren chymal scarring in the lingula which is stable as well. There is no pleural effusion or pneumothorax seen. MEDIASTINUM: There are no greater than 1 cm hilar or mediastinal lymph nodes. No pericardial effusi on is seen. OTHER: There is a single gallstone and right renal cysts. The osseous structures are intact. IMPRESSION: 1. No acute cardiopulmonary disease. 2. No mediastinal, hilar or axillary adenopathy 3. Stable single gallstone. 4. Stable small groundglass density abutting the minor fissure. Stable small lingular interstitial ch paul.
== END | disposition home or self-care (01) ==
LOC: RADCTMAIN 11:21
PROVIDERS: ATTEND Internal Medicine
DX: K80.20 Calculus of gallbladder without cholecystitis without obstruction (principal); R91.8 Other nonspecific abnormal finding of lung field
CPT/HCPCS: 82565; 84520; 71260; 36415; Q9967

== ENCOUNTER → 2025-02-04 | Outpatient (CLI) | payer OTHER, MEDICARE ==
--- NOTE | 2025-02-04 09:43 | MR ---
EXAMINATION TYPE: MR Prostate wo/w con DATE OF EXAM: 02/04/2025 COMPARISON: None. INDICATION: Prostate ca, elevated PSA PSA: 5.8 ng/ml in 01/2024 Recent Biopsy and Date: 2018 Pathology Report (If Applicable): Benign results. TECHNIQUE: Examination was performed using a 3T MRI without an endorectal coil. Multiparametric imaging was perf ormed with T2 mutliplanar sequences, axial diffusion weighted imaging and dynamic contrast enhanced i maging, utilizing 9 mL intravenous Gadobutrol gadolinium contrast. FINDINGS: Significantly enlarged prostate gland. Peripheral zone show some linear areas of slightly diminished signal on ADC mapping bilaterally. No areas of marked diminished signal are identified. There is hete rogeneous hypertrophy of the transitional zone with bilateral nodules. No suspicious T2 hypointense a reas. No areas of suspicious marked increased signal on diffusion-weighted imaging. PROSTATE VOLUME: 6.1 cm SI x 5.3 cm AP x 6.0 cm LR Vol= 101.6 cc PSA DENSITY: 0.06 ng/ml/cc Mild trabeculation and the urinary bladder wall. No destructive osseous lesions are seen. IMPRESSION: Markedly enlarged prostate consistent with BPH. A focus of clinically significant cancer is not identified. Highest Assessment Category: 2 MRI Stage: T0 N0 M0 based on review of pelvic images. False negative rates for MRI range from 5-20% depending on risk profile. Assessment Categories: 1 ? Very low (clinically significant cancer is highly unlikely to be present) 2 ? Low (clinically significant cancer is unlikely to be present) 3 ? Intermediate (the presence of clinically significant cancer is equivocal) 4 ? High (clinically significant cancer is likely to be present) 5 ? Very high (clinically significant cancer is highly likely to be present) [facility], , 02/04/2025 9:41 AM
== END | disposition home or self-care (01) ==
LOC: RADMRIMAIN 08:23
PROVIDERS: ATTEND Urology
DX: N40.0 Benign prostatic hyperplasia without lower urinary tract symptoms (principal); R97.20 Elevated prostate specific antigen [PSA]
CPT/HCPCS: 72197; A9585